=== PATIENT | male | born 1985 | race Caucasian/White ===

== ENCOUNTER → 2022-03-20 09:09 | Outpatient (REF) | payer MEDICAID, SELFPAY ==
--- NOTE | 2022-03-20 09:23 | ECG_ITS ---
Test Reason : QT PROLONGATION Blood Pressure : / mmHG Vent. Rate : 076 BPM Atrial Rate : 076 BPM P-R Int : 122 ms QRS Dur : 106 ms QT Int : 386 ms P-R-T Axes : 069 022 071 degrees QTc Int : 434 ms Normal sinus rhythm Obaiz-Wabplhxwq-Wmteu pattern Abnormal ECG No previous ECGs available Referred By: Damaris Betancourt Electronically Signed By:MARAH WISEMAN MD
== END ==
LOC: HO.CARD 09:09
PROVIDERS: PCP Family Medicine; Visit Provider Family Medicine
DX: Z79.899 Other long term (current) drug therapy (principal)
CPT/HCPCS: 93005